=== PATIENT | male | born 1960 | race African-American/Black ===

== ENCOUNTER 2017-05-27 15:55 | Outpatient (CLI) ==
[2017-05-27 16:04] LABS: BASOPHILS # (AUTO) 0.1 K/uL (0-0.2); BASOPHILS % (AUTO) 0.8 % (0.0-3.0); EOSINOPHILS # (AUTO) 0.1 K/ul (0.0-0.7); EOSINOPHILS % (AUTO) 1.8 % (0.0-7.0); HEMOGLOBIN 14.2 g/dl (14.0-18.0); IMMATURE GRANULOCYTE % (AUTO) 0.5 % (0.0-5.0); LYMPHOCYTES # (AUTO) 2.3 K/uL (0.60-3.4); LYMPHOCYTES % (AUTO) 36.9 (10.0-50.0); MEAN CORPUSCULAR HEMOGLOBIN 28.5 pg (27.0-31.0); MEAN CORPUSCULAR VOLUME 86.2 fl (80.0-94.0); MONOCYTES # (AUTO) 0.7 K/uL (0.4-2.0); MONOCYTES % (AUTO) 10.6 (0-10); NEUTROPHILS # (AUTO) 3.1 K/ul (2.0-6.9); NEUTROPHILS % (AUTO) 49.4; PLATELET COUNT 293 10^3/uL (140-440); RED BLOOD COUNT 4.99 10^6/ul (4.70-6.10); WHITE BLOOD COUNT 6.24 K/ul (4.2-10.2)
[2017-05-27 16:36] LABS: ALBUMIN 3.8 g/dL (3.4-5.0); ALBUMIN/GLOBULIN RATIO 0.97; BILIRUBIN,TOTAL 0.31 mg/dL (0.00-1.20); BUN/CREATININE RATIO 10.3; CALCIUM 9.5 mg/dL (8.2-10.2); CHOL/HDL RATIO 5.2 (4.5-6.4); CREATININE 0.97 mg/dL (0.60-1.10); TOTAL PROTEIN 7.7 g/dL (6.4-8.2)
== END 2017-05-27 15:56 | disposition home or self-care (01) ==
LOC: LAB 15:55
PROVIDERS: ATTEND Emergency Medicine
DX: I10 Essential (primary) hypertension (principal); E66.9 Obesity, unspecified
CPT/HCPCS: 36415; 80053; 80061; 84443; 85025

== ENCOUNTER 2017-10-03 09:29 | Outpatient (CLI) ==
[2017-10-03 11:47] VITALS: BMI 33.9
== END 2017-10-03 09:30 | disposition home or self-care (01) ==
LOC: DIETCN 09:29
PROVIDERS: ATTEND Emergency Medicine
DX: E11.9 Type 2 diabetes mellitus without complications (principal)

== ENCOUNTER 2017-11-01 09:09 | Outpatient (CLI) | payer OTHER ==
--- NOTE | 2017-11-01 09:43 | DI ---
EXAM: LEFT KNEE. HISTORY: Left knee pain FINDINGS: Left knee two-view. Articular cartilage width is normal. There is no fracture or joint e ffusion. Bone density and soft tissues are within normal limits. IMPRESSION: Within normal limits.
--- NOTE | 2017-11-01 09:44 | DI ---
EXAM: LEFT SHOULDER HISTORY: Left shoulder pain FINDINGS: Left shoulder three-view. Bone and joint structures are within normal limits. There is no joint dislocation or fracture identified. Bone density and soft tissues are unremarkable. Incidenta l note of stabilization hardware lower cervical spine. IMPRESSION: Shoulder within normal limits.
--- NOTE | 2017-11-01 09:46 | DI ---
EXAM: Cervical spine three views HISTORY: Facet joint arthropathy. FINDINGS: No comparison. Interval anterior stabilization hardware placement between C5 and C7 with intervening disc spacers. Hardware appears well seated without evidence of loosening or dislodgement . There is no spondylolisthesis or acute fracture. No scoliosis. Lateral masses of C1 and C2 are normally aligned and the odontoid process is intact. Prevertebral soft tissue thickness is normal. IMPRESSION: Postop changes of the cervical spine. No acute radiographic findings.
--- NOTE | 2017-11-01 09:50 | DI ---
EXAM: Lumbar spine three views HISTORY: Lumbar facet arthropathy FINDINGS: No scoliosis. Sacroiliac joints are within normal limits. Normal alignment and vertebral body height. There may be subtle facet arthropathy at the lumbosacral junction. No significant deg enerative disc disease. IMPRESSION: There may be subtle facet arthropathy lower spine and lumbosacral junction.
== END 2017-11-01 09:10 | disposition home or self-care (01) ==
LOC: RAD 09:09
PROVIDERS: ATTEND Pain Medicine Interventional Pain Medicine
DX: M47.812 Spondylosis without myelopathy or radiculopathy, cervical region (principal); M47.816 Spondylosis without myelopathy or radiculopathy, lumbar region; M47.817 Spondylosis without myelopathy or radiculopathy, lumbosacral region; M54.2 Cervicalgia; M54.5 Low back pain; M25.512 Pain in left shoulder; M25.562 Pain in left knee

== ENCOUNTER 2017-12-03 11:45 | Outpatient (CLI) | END 2017-12-03 11:46 | disposition home or self-care (01) | LOC: LAB 11:45 | PROVIDERS: ATTEND Emergency Medicine | DX: I10 Essential (primary) hypertension (principal); E66.9 Obesity, unspecified; E11.9 Type 2 diabetes mellitus without complications; Z79.4 Long term (current) use of insulin; Z12.5 Encounter for screening for malignant neoplasm of prostate | CPT/HCPCS: 36415; 80053; 80061; 83036; 84443; 85025 ==

== ENCOUNTER 2018-02-18 10:49 | Inpatient (IN) ==
[2018-02-18 12:04] VITALS: BMI 30.7
--- NOTE | 2018-02-18 13:39 | DI ---
EXAM: Two views of the chest. History: Cough. Findings: Heart size is within normal limits. No focal consolidation. No pneumothorax. No acute o sseous abnormalities. Bilateral pleural thickening versus prominent pleural fat. Impression: 1. No focal pneumonia. 2. Bilateral pleural thickening versus prominent pleural fat. Recommend correlation with chest CT.
--- NOTE | 2018-02-18 14:14 | CT ---
EXAM: CT of the abdomen pelvis without contrast History: Diarrhea. Technique: Multiplanar CT images through the abdomen pelvis were obtained without the administration of IV contrast Findings: Lung bases are free of consolidation. No acute osseous abnormalities. There are several hypoattenuating liver lesions most of which are too small to characterize accuratel y by CT. No peripancreatic inflammation. Adrenal glands are unremarkable. No renal stones and no hy dronephrosis. The appendix is normal. No bowel obstruction. No free air and no ascites. No bladder wall thickening. Prostate is not enlarged. No perirectal inflammation. No inflammatory stranding. Small fat-containing umbilical hernia Impression: 1. No acute intra-abdominal or pelvic process. 2. Numerous hypoattenuating liver lesions, most of which are too small to characterize accurately by CT but statistically probably represents cysts with absence of any risk factors. Malignant etiology is not excluded and recommend further evaluation with dedicated MRI liver mass protocol.
[2018-02-18] MEDS ORDERED: TYLENOL PO PRN (15:26)
[2018-02-18] MEDS ORDERED: DECADRON 4 MG/ML SDV IVP STA (15:28)
[2018-02-18] MEDS ORDERED: ROCEPHIN 1 GM in SODIUM CHLORIDE 50 ML IV SCH (15:30)
[2018-02-18] MEDS ORDERED: HUMULIN R SUBCUT PRN (16:42)
[2018-02-18] MEDS: GLUCOPHAGE PO SCH (17:19)
[2018-02-18] MEDS: SODIUM CHLORIDE 1,000 ML IV SCH (17:20)
[2018-02-18] MEDS ORDERED: NORCO 5-325 PO STA (17:48)
[2018-02-18] MEDS: NEURONTIN PO SCH (20:17)
[2018-02-18] MEDS: CIPRO PO SCH (20:17)
[2018-02-18] MEDS: NORCO 5-325 PO SCH (20:17)
[2018-02-18] MEDS: BENADRYL PO SCH (20:18)
[2018-02-18] MEDS ORDERED: HYDROCODONE PO SCH (21:00)
[2018-02-18] MEDS ORDERED: [UNRECOGNIZED DRUG - OTHER] PO SCH (21:00)
[2018-02-18] MEDS ORDERED: ACETAMINOPHEN PO SCH (21:00)
[2018-02-18] MEDS: DUONEB NEB SCH (22:00)
[2018-02-19] MEDS: SODIUM CHLORIDE 1,000 ML IV SCH ×2 (04:46→08:04)
[2018-02-19] MEDS: DUONEB NEB SCH ×3 (05:25→22:48)
[2018-02-19] MEDS: CIPRO PO SCH ×2 (08:03→20:42)
[2018-02-19] MEDS ORDERED: NON-FORMULARY MEDICATION (Amlodipine Besylate [Norvasc] 10 MG) PO SCH (09:00)
[2018-02-19] MEDS ORDERED: NON-FORMULARY MEDICATION (Atorvastatin Calcium [Atorvastatin Calcium] 40 MG) PO SCH (09:00)
[2018-02-19] MEDS ORDERED: NON-FORMULARY MEDICATION (Lisinopril [Lisinopril] 20 MG) PO SCH (09:00)
[2018-02-19] MEDS: NORVASC PO SCH (09:20)
[2018-02-19] MEDS: LIPITOR PO SCH (09:20)
[2018-02-19] MEDS: NORCO 5-325 PO SCH ×2 (09:21→20:42)
[2018-02-19] MEDS: NEURONTIN PO SCH ×3 (09:21→20:42)
[2018-02-19] MEDS: ZESTRIL PO SCH (09:21)
[2018-02-19] MEDS: LEVEMIR SUBCUT SCH (09:22)
[2018-02-19] MEDS: GLUCOPHAGE PO SCH ×2 (09:22→16:46)
[2018-02-19] MEDS ORDERED: SODIUM CHLORIDE 1,000 ML IV SCH (14:00)
[2018-02-19] MEDS ORDERED: ATIVAN IVP STA (14:48)
[2018-02-19] MEDS: BENADRYL PO SCH (20:42)
[2018-02-20] MEDS: DUONEB NEB SCH ×3 (04:37→22:03)
[2018-02-20] MEDS: CIPRO PO SCH ×2 (05:33→21:22)
[2018-02-20] MEDS: NEURONTIN PO SCH ×3 (10:44→21:22)
[2018-02-20] MEDS: GLUCOPHAGE PO SCH ×2 (10:45→19:47)
[2018-02-20] MEDS: LIPITOR PO SCH (10:45)
[2018-02-20] MEDS: ZESTRIL PO SCH (10:45)
[2018-02-20] MEDS: NORVASC PO SCH (10:46)
[2018-02-20] MEDS: LEVEMIR SUBCUT SCH (10:46)
[2018-02-20] MEDS ORDERED: NORCO 7.5-325 PO STA (10:54)
[2018-02-20] MEDS: NORCO 7.5-325 PO SCH ×2 (16:58→21:22)
[2018-02-20] MEDS: NORCO 5-325 PO SCH (20:31)
[2018-02-20] MEDS: BENADRYL PO SCH (21:22)
[2018-02-21] MEDS: DUONEB NEB SCH (04:43)
[2018-02-21] MEDS: NORCO 7.5-325 PO SCH (06:00)
[2018-02-21] MEDS: CIPRO PO SCH (06:00)
[2018-02-21 06:03] VITALS: BP 103/64; TEMP 97.4
[2018-02-21] MEDS: NEURONTIN PO SCH (08:51)
[2018-02-21] MEDS: GLUCOPHAGE PO SCH (08:51)
[2018-02-21] MEDS: LIPITOR PO SCH (08:52)
[2018-02-21] MEDS: ZESTRIL PO SCH (08:52)
[2018-02-21] MEDS: NORVASC PO SCH (08:52)
[2018-02-21] MEDS: LEVEMIR SUBCUT SCH (08:54)
--- NOTE | 2018-02-21 09:15 | MRI ---
EXAM: MRI of the abdomen with and without contrast History: Liver lesions. Comparison: CT abdomen pelvis 02/18/2018 Technique: Multiplanar, multisequence MRI images through the abdomen were obtained with and without the administration of IV contrast. 20 mL of Dotarem was given intravenously. Findings: Lung bases are free of consolidation. Bone marrow signal is within normal limits. Portal veins are patent. 6 mm simple cyst within the superior pole of the left kidney. No gallstone s identified. No intrahepatic or extrahepatic biliary ductal dilatation. Pancreatic duct is not dil ated. No peripancreatic inflammation. Adrenal glands are unremarkable. Spleen is within normal tuttle its. There are numerous T2 hyperintense simple cysts seen within the liver with the largest measurin g 2.4 cm in the right hepatic lobe and 1.8 cm in the left hepatic lobe. No dilated loops of bowel. No lymphadenopathy. No free air. No ascites. No pancreatic lesions. No signal drop out within the liver on out of phase. No aortic aneurysm is visualized. The signal within the pancreas is normal. No enhancing renal masses. There are no suspicious enhancing liver lesions. Impression: 1. Numerous simple hepatic cysts. There are no suspicious liver lesions. No additional follow-up i s needed. 2. Small simple left renal cyst. 3. No acute intra-abdominal process.
--- NOTE | 2018-02-21 13:26 | PN ---
DATE OF SERVICE: 02/19/18 SUBJECTIVE: The patient was admitted to the office for the acute gastroenteritis and not able to keep anything down. Vomited 3-4 times at home. Cough, congestion and shortness of breath. Chest x-ray did not show any pneumonia. CT abdomen did show the numerous hypoattenuating liver lesions, most of which are too small to characterize. Malignant etiology is not excluded. Otherwise the patient did have two diarrhea movements today morning. No abdominal cramping, some discomfort all over the belly. REVIEW OF SYSTEMS: CONSTITUTIONAL: No fever, no chills. HEENT: Normal. ENDOCRINE: No weight gain, no weight loss. CVS: No angina symptoms. No CHF symptoms. No palpitations. No atypical chest pain for CAD. No shortness of breath. No PND, no orthopnea. RESPIRATORY: Cough and congestion is present, no hemoptysis. GI: No nausea, no vomiting. No abdominal pain. : No hematuria. No polyuria. MUSCULOSKELETAL: No joint swelling. PSYCHIATRIC: Not anxious. No depression. No suicidal thoughts. No homicidal thoughts. SKIN: Intact. No rash. PHYSICAL EXAMINATION: V/S: Blood pressure 132/80, respiratory rate 18, heart rate 74, temperature 97.7 , saturation 94%. HEENT: Normocephalic, atraumatic. Mucosa dry. Pallor positive. No icterus. NECK: Supple. No JVD, no carotid bruit. No lymphadenopathy. LUNGS: Clear to auscultation. No rales or rhonchi. HEART: S1, S2 normal. No S3. No murmur, gallop or regurgitation. ABDOMEN: Soft, nontender. Bowel sounds active. No rigidity. No rebound or guarding. No CVA tenderness. EXTREMITIES: No cyanosis, clubbing or pedal edema. MUSCULOSKELETAL: No joint swelling. NEUROLOGIC: Awake, alert, oriented times three. No focal deficit. LYMPHATIC: No lymph nodes palpable. SKIN: Intact. LABS: Hgb 11.7 dropped from the 13.1, hct 36.6, plt count 291, WBC 5.89, sodium 142, potassium 4.0, chloride 107, bicarb 28, BUN 11, creatinine 0.91 and glucose 89. ASSESSMENT: 1. Acute gastroenteritis 2. Liver lesion, will evaluate it with MRI 3. Upper respiratory infection 4. Anemia with drop of hgb from 13.1 to 11.7; will evaluate with anemia profile 5. Diabetes 6. Hypertension PLAN: 1. Continue IV fluids 2. Accu-checks with coverage 3. MRI of the liver 4. Out of bed to chair. TIME SPENT: More than 35 minutes MTDD
--- NOTE | 2018-02-24 11:44 | PN ---
DATE OF SERVICE: 02/20/18 SUBJECTIVE: The patient was admitted with acute gastroenteritis and upper respiratory infection. Diarrhea 2 or 3 stools. The patient will be scheduled for MRI abdomen for the mass like lesions in the CT abdomen. REVIEW OF SYSTEMS: CONSTITUTIONAL: No fever, no chills. HEENT: Normal. ENDOCRINE: No weight gain, no weight loss. CVS: No angina symptoms. No CHF symptoms. No palpitations. No atypical chest pain for CAD. No shortness of breath. No PND, no orthopnea. RESPIRATORY: Cough and congestion improved, no hemoptysis. GI: No nausea, no vomiting. No abdominal pain. : No hematuria. No polyuria. MUSCULOSKELETAL: No joint swelling. PSYCHIATRIC: Not anxious. No depression. No suicidal thoughts. No homicidal thoughts. SKIN: Intact. No rash. PHYSICAL EXAMINATION: V/S: Blood pressure 122/79, respiratory rate 20, heart rate 100, temperature 97.9 and saturation 99%. HEENT: Normocephalic, atraumatic. Mucosa dry. Pallor positive. No icterus. NECK: Supple. No JVD, no carotid bruit. No lymphadenopathy. LUNGS: Clear to auscultation. No rales or rhonchi. HEART: S1, S2 normal. No S3. No murmur, gallop or regurgitation. ABDOMEN: Soft, nontender. Bowel sounds active. No rigidity. No rebound or guarding. No CVA tenderness. EXTREMITIES: No cyanosis, clubbing or pedal edema. MUSCULOSKELETAL: No joint swelling. NEUROLOGIC: Awake, alert, oriented times three. No focal deficit. LYMPHATIC: No lymph nodes palpable. SKIN: Intact. LABS: WBC 6.52, hgb 4.0, hct 7.3, plt count 305, sodium 143, potassium 3.7, chloride 110, bicarb 22, BUN 12, creatinine 0.82, glucose 83. ASSESSMENT: 1. Acute gastroenteritis 2. Dehydration 3. Upper respiratory infection 4. Diabetes 5. Hypertension 6. Dyslipidemia 7. Osteoarthritis 8. Sickle cell trait PLAN: 1. Continue Cipro 500mg twice a day 2. Decadron 3. Duo NEBS 4. Accu-checks with coverage 5. MRI of abdomen and pelvis TIME SPENT: More than 35 minutes MTDD
--- NOTE | 2018-03-15 13:13 | DS ---
DATE OF SERVICE: 02/20/18 FINAL DIAGNOSIS: 1. ACUTE GASTROENTERITIS AND DEHYDRATION 2. UPPER RESPIRATORY INFECTION 3. LIVER LESION (MRI DONE AND PENDING) 4. DYSLIPIDEMIA 5. HYPERTENSION 6. DIABETES TYPE 2 7. C-SPINE SURGERY 8. LEFT KNEE SCOPE DISCHARGE INSTRUCTIONS: Followup appointment with Dr. Barrera on 02/27/18, 11 a.m. at [facility]. MEDICATIONS AT DISCHARGE: Norvasc Atorvastatin Neurontin Hydrocodone Levemir Lisinopril Metformin Benadryl Flagyl NEW PRESCRIPTIONS: Flagyl 500 mg one p.o. three times a day for 5 days DIET INSTRUCTIONS: Cardiac and Healthy. Increase hydration. ACTIVITY: Resume activity as tolerated. DISEASE SPECIFIC EDUCATION: Gastroenteritis, dehydration, diabetes, DKA discussed HOSPITAL COURSE: 58-year-old male who came to the office with nausea and vomiting, cough and congestion, diarrhea (5 to 6 times. At this time the patient came to my office with vomiting, unable to keep anything down, cough, congestion and shortness of breath. Saturation in the office was 91 on room air. The patient was admitted directly from the office. ABGs were done which showed pH 7.531, pc02 41.6, p02 89. Hemoglobin 13.1, white count was normal. Alkaline phosphatase 121. Monocytes were elevated. Urine negative for infection. CT scan of the abdomen and pelvis was negative. Chest x-ray negative. The patient was started on IV fluids. Rocephin 1 gm IV, Decadron and Duonebs. CT abdomen and pelvis showed right upper quadrant liver has multiple areas which could be malignancy and suggested MRI should be done. Continued with Rocephin then changed to Ciprofloxacin. MRI was ordered. The MRI was still pending at time of discharge but the patient had been up and about walking, no more diarrhea, no more cough or congestion, no shortness of breath. As patient was doing good, he was discharged home. TIME SPENT: MORE THAN 60 MINUTES MTDD
== END 2018-02-21 10:03 | disposition home or self-care (01) | DRG 392 ==
LOC: MEDSURG A 10:49
PROVIDERS: ADMIT Emergency Medicine; ATTEND Emergency Medicine
DX: K52.9 Noninfective gastroenteritis and colitis, unspecified (principal); J06.9 Acute upper respiratory infection, unspecified; E86.0 Dehydration; R06.02 Shortness of breath; K76.89 Other specified diseases of liver; I10 Essential (primary) hypertension; E11.9 Type 2 diabetes mellitus without complications; E78.5 Hyperlipidemia, unspecified; D64.9 Anemia, unspecified; M19.90 Unspecified osteoarthritis, unspecified site; D57.3 Sickle-cell trait; Z79.84 Long term (current) use of oral hypoglycemic drugs; Z79.4 Long term (current) use of insulin
CPT/HCPCS: 36415; 80053; 81001; 82550; 82803; 82962; 84484; 85025; 93005; 93010; 94640; 97802

== ENCOUNTER 2018-03-06 09:01 | Outpatient (CLI) ==
--- NOTE | 2018-03-06 09:18 | DI ---
EXAM: Two views of the left shoulder. History: Left shoulder pain. Comparison: Left shoulder radiograph 11/01/2017 Findings: No acute fracture or dislocation. No abnormal calcifications or radiopaque foreign bodies . Mild narrowing of the left AC joint with small undersurface osteophytes. Glenohumeral joint is in tact. Impression: 1. No acute osseous abnormality. 2. Mild arthritis of the left AC joint with small undersurface osteophyte
== END 2018-03-06 09:02 | disposition home or self-care (01) ==
LOC: RAD 09:01
PROVIDERS: ATTEND Emergency Medicine
DX: D64.9 Anemia, unspecified (principal); N52.9 Male erectile dysfunction, unspecified; M25.512 Pain in left shoulder
CPT/HCPCS: 36415; 82607; 82728; 82746; 83001; 83002; 83540; 83550; 84403; 84466; 85025; 85045

== ENCOUNTER 2018-05-13 12:37 | Outpatient (CLI) | END 2018-05-13 12:38 | disposition home or self-care (01) | LOC: LAB 12:37 | PROVIDERS: ATTEND Emergency Medicine | DX: E11.9 Type 2 diabetes mellitus without complications (principal); I10 Essential (primary) hypertension; E66.9 Obesity, unspecified | CPT/HCPCS: 36415; 80061; 82043; 83036; 84443 ==

== ENCOUNTER 2018-05-30 09:49 | Outpatient (CLI) | END 2018-05-30 09:50 | disposition home or self-care (01) | LOC: RHC-LAB 09:49 | PROVIDERS: ATTEND Emergency Medicine | DX: E11.9 Type 2 diabetes mellitus without complications (principal); I10 Essential (primary) hypertension; E66.9 Obesity, unspecified; M54.12 Radiculopathy, cervical region | CPT/HCPCS: 36415; 80053; 80061; 83036; 84443; 85025 ==

== ENCOUNTER 2019-01-16 12:05 | Outpatient (CLI) ==
--- NOTE | 2019-01-16 12:42 | DI ---
EXAM: RIGHT KNEE. HISTORY: Right knee pain. FINDINGS: Right knee four view. There is mild tricompartment osteoarthritis. No fracture or joint effusion. Soft tissues are within normal limits IMPRESSION: 1. Mild tricompartment osteoarthritis.
== END 2019-01-16 12:06 | disposition home or self-care (01) ==
LOC: RAD 12:05
PROVIDERS: ATTEND Nurse Practitioner Family
DX: M25.561 Pain in right knee (principal); M75.22 Bicipital tendinitis, left shoulder; E11.9 Type 2 diabetes mellitus without complications
CPT/HCPCS: 36415; 83037

== ENCOUNTER 2019-01-16 12:13 | Outpatient (CLI) | END 2019-01-16 12:14 | disposition home or self-care (01) | LOC: RHC-LAB 12:13 → FCC-LAB 12:14 | PROVIDERS: ATTEND Nurse Practitioner Family | DX: E11.9 Type 2 diabetes mellitus without complications (principal); Z79.4 Long term (current) use of insulin ==

== ENCOUNTER 2019-06-03 09:17 | Outpatient (CLI) | END 2019-06-03 09:18 | disposition home or self-care (01) | LOC: RHC-LAB 09:17 → FCC-LAB 09:18 | PROVIDERS: ATTEND Family Medicine | DX: E11.9 Type 2 diabetes mellitus without complications (principal) | CPT/HCPCS: 36415; 80053; 80061; 83036 ==